=== PATIENT | male | born 1965 | race Caucasian/White ===

== ENCOUNTER 2018-12-23 23:04 | Emergency (ER) | payer MEDICAID ==
[~2018-12-23] VITALS: Ht 177.8 cm; Wt 68.0 kg
[~2018-12-23 23:04] MED LIST: LANS30EC PO; RANI150 PO
[2018-12-23] MEDS ORDERED: Prilosec10 M1 (23:16)
[2018-12-23] MEDS ORDERED: HYDHCL25 (23:17)
[2018-12-23 23:38] LABS: BASOPHILS ABSOLUTE AUTO 0.03 K/mm3 (0.00-0.23); BASOPHILS PERCENT AUTO 1 % (0-2); EOSINOPHILS PERCENT AUTO 0 % (0-6); Hematocrit 45.2 % (37.0-53.0); Hemoglobin 15.6 g/dL (13.5-17.5); IMMATURE GRAN ABSOLUTE AUTO 0.02 K/mm3 (0.00-0.10); IMMATURE GRAN PERCENT AUTO 0 % (0-1); LYMPHOCYTES PERCENT AUTO 23 % (21-46); MONOCYTES ABSOLUTE AUTO 0.55 K/mm3 (0.16-1.47); MONOCYTES PERCENT AUTO 8 % (4-13); Mean Corpuscular HGB 33.3 pg (26.0-34.0); Mean Corpuscular HGB Conc 34.5 g/dL (31.5-36.5); Mean Corpuscular Volume 97 fL (80-100); Mean Platelet Volume 9.7 fL (9.1-12.4); NEUTROPHILS ABSOLUTE AUTO 4.43 K/mm3 (1.96-9.15); NEUTROPHILS PERCENT AUTO 68 % (41-73); Platelet Count 234 K/mm3 (150-400); RDW Coefficient Variation 11.8 % (11.7-14.2); RDW Standard Deviation 42.4 fL (35.1-46.3); Red Blood Cell Count 4.68 M/mm3 (4.30-5.90); White Blood Cell Count 6.53 K/mm3 (4.00-11.30)
[2018-12-23 23:55] LABS: Alanine Aminotransfer (ALT/SGP 26 U/L (12-78); Albumin, Blood 3.8 g/dL (3.4-5.0); Albumin/Globulin Ratio 1.1 (0.8-1.8); Alk Phos 52 U/L (50-136); Anion Gap 7 mmol/L (6-16); Aspartate Aminotrans (AST/SGOT 13 U/L (12-37); Bilirubin, Total 0.7 mg/dL (0.1-1.0); Blood Urea Nitrogen 22 mg/dL (8-24); Bun/Creatinine Ratio 24.7 (12.0-20.0); CO2, Blood 30 mmol/L (21-32); Calcium, Blood 9.2 mg/dL (8.5-10.1); Chloride, Blood 98 mmol/L (98-108); Creatinine, Blood 0.89 mg/dL (0.60-1.20); Globulin, Blood 3.6 g/dL (2.2-4.0); Glomerular Filtration Rate >60 (60-); Glucose, Blood 109 mg/dL (70-99); Potassium, Blood 3.4 mmol/L (3.5-5.5); Sodium, Blood 135 mmol/L (136-145); Total Protein, Blood 7.4 g/dL (6.4-8.2)
[2018-12-24 00:11] LABS: Source, Urine Clean Catch
[2018-12-24 00:14] LABS: Bilirubin, Urine Neg (Neg); Blood, Urine 1+ (Neg); Glucose Qualitative, Urine Neg (Neg); Ketones, Urine 4+ (Neg); Leukocyte Esterase, Urine Neg (Neg); Nitrite, Urine Neg (Neg); Protein, Urine 1+ (Neg); Specific Gravity, Urine 1.015 (1.003-1.022); Urobilinogen, Urine 1+ (Normal); pH, Urine 6.5 (5.0-8.0)
[2018-12-24 00:19] LABS: Appearance, Urine Clear (Clear); Bacteria Rare /hpf; Color, Urine Yellow (P-Yellow); Mucus Light (0-Heavy); Red Blood Cells, Urine Rare /hpf (0-2); Squamous Epithelial Cells Not Seen /hpf (Few); White Blood Cells, Urine Not Seen /hpf (0-5)
[2018-12-24] MEDS ORDERED: Omeprazole20 M1 PO (02:08)
== END 2018-12-24 02:15 | disposition home or self-care (01) ==
LOC: ER 23:04
PROVIDERS: Physician Assistant
DX: K21.9 Gastro-esophageal reflux disease without esophagitis (principal); Z88.0 Allergy status to penicillin; Z88.5 Allergy status to narcotic agent; Z79.899 Other long term (current) drug therapy; F17.210 Nicotine dependence, cigarettes, uncomplicated
CPT/HCPCS: 36415; 74176; 80053; 81001; 83690; 85025; 96361; 96374; 99284-25; J2550; J7030

== ENCOUNTER 2018-12-26 09:52 | Emergency (ER) | payer MEDICAID ==
[~2018-12-26] VITALS: Ht 177.8 cm; Wt 68.0 kg
[~2018-12-26 09:52] MED LIST changes: +HYDHCL25; +Omeprazole20 M1 PO; +Prilosec10 M1
[2018-12-26 10:29] LABS: Alanine Aminotransfer (ALT/SGP 27 U/L (12-78); Albumin, Blood 4.1 g/dL (3.4-5.0); Albumin/Globulin Ratio 1.2 (0.8-1.8); Alk Phos 49 U/L (50-136); Anion Gap 8 mmol/L (6-16); Aspartate Aminotrans (AST/SGOT 16 U/L (12-37); Bilirubin, Total 0.5 mg/dL (0.1-1.0); Blood Urea Nitrogen 20 mg/dL (8-24); Bun/Creatinine Ratio 22.4 (12.0-20.0); CO2, Blood 29 mmol/L (21-32); Calcium, Blood 9.4 mg/dL (8.5-10.1); Chloride, Blood 100 mmol/L (98-108); Creatinine, Blood 0.89 mg/dL (0.60-1.20); Globulin, Blood 3.4 g/dL (2.2-4.0); Glomerular Filtration Rate >60 (60-); Glucose, Blood 124 mg/dL (70-99); Potassium, Blood 3.4 mmol/L (3.5-5.5); Sodium, Blood 137 mmol/L (136-145); Total Protein, Blood 7.5 g/dL (6.4-8.2)
[2018-12-26] MEDS ORDERED: Zofran4 MG PO (11:11)
== END 2018-12-26 12:32 | disposition home or self-care (01) ==
LOC: ER 09:52
PROVIDERS: Emergency Medicine
DX: G43.A0 Cyclical vomiting, in migraine, not intractable (principal); K21.9 Gastro-esophageal reflux disease without esophagitis; F17.200 Nicotine dependence, unspecified, uncomplicated; Z88.0 Allergy status to penicillin; Z88.5 Allergy status to narcotic agent; Z79.899 Other long term (current) drug therapy
CPT/HCPCS: 36415; 80053; 96361; 96374; 96375; 99284-25; J1200; J1630; J2405; J7030

== ENCOUNTER 2024-11-10 16:57 | Emergency (ER) | payer OTHER ==
[~2024-11-10] VITALS: Ht 177.8 cm; Wt 86.2 kg
[~2024-11-10 16:57] MED LIST changes: +Zofran4 MG PO
[2024-11-10 17:08] VITALS: BP 136/100
[2024-11-10] MEDS ORDERED: FentaNYL Citrate 50 MCG/ML 2 ML Injection IV ONE (17:40)
== END 2024-11-10 18:29 | disposition home or self-care (01) ==
LOC: ER 16:57
DX: S43.014A Anterior dislocation of right humerus, initial encounter (principal); S43.034A Inferior dislocation of right humerus, initial encounter; K21.9 Gastro-esophageal reflux disease without esophagitis; F17.200 Nicotine dependence, unspecified, uncomplicated; Z88.0 Allergy status to penicillin; Z88.5 Allergy status to narcotic agent; W01.0XXA Fall on same level from slipping, tripping and stumbling without subsequent striking against object, initial encounter
CPT/HCPCS: 23650; 73030; 96374; 99283-25; J3010

== ENCOUNTER 2025-04-18 06:02 | Day surgery (SDC) | payer OTHER ==
[2025-04-18] VITALS (11 sets, daily range): BP systolic 111–150; BP diastolic 72–95
[~2025-04-18] VITALS: Ht 177.8 cm; Wt 83.6 kg
[~2025-04-18 06:02] MED LIST changes: +CELE100 PO; +OMEP20ER PO
[2025-04-18] MEDS ORDERED: Benzocaine Oral Spray 0.5ML UD ONE (06:58)
--- NOTE | 2025-04-18 07:12 | NUR ---
Ambulatory in Day SurgeryPre-Op teaching done. Pt verbalizes understanding. History, Chart, Medications and Allergies reviewed before start of procedure.Patient confirms NPO status and agrees with scheduled surgery. Patient States Post-Procedure ride home has been arranged.
--- NOTE | 2025-04-18 07:36 | NUR ---
04/18/25 0736 Charisse Landis CONFIRMED AND REVIEWED H&P, MEDCICATIONS, ALLERGIES, MEDICAL HISTORY, RESPIRATORY HISTORY, VITAL SIGNS, 3-LEAD EKG, CONSENTS, AND PHYSICIAN ORDERS. PATIENT CONFIRMS NPO STATUS AND AGREES WITH SCHEDULED PROCEDURE. MONITOR INTACT WITH CONTINUOUS PULSE OXIMETRY, CAPNOGRAPHY, 3-LEAD EKG, INTERMITTENT BP. SUPPLEMENTAL O2 TO BE TITRATED THROUGHOUT PROCEDURE TO MAINTAIN O2 SATURATION ABOVE 90%. PATIENT DETERMINED TO BE ASA APPROPRIATE FOR PROPOFOL SEDATION PRIOR TO START OF PROCEDURE BY DR. BONILLA. MALLAMPATI CLASS 3 AIRWAY: VISUALIZATION OF ONLY THE BASE OF THE UVULA.
--- NOTE | 2025-04-18 08:08 | NUR ---
Discharge instructions reviewed with patient. Patient verbalizes understanding. Copy given to patient to take home. Patient States Post-Procedure ride home has been arranged. Discharged via wheelchair to private car for ride home.
== END 2025-04-18 08:10 | disposition home or self-care (01) ==
LOC: ORSCMMR 06:02 → ORD 07:30 → ORSCMMR 07:30
PROVIDERS: Internal Medicine Gastroenterology
PROC: 0DB48ZX Excision of Esophagogastric Junction, Via Natural or Artificial Opening Endoscopic, Diagnostic (ICD-10-PCS; principal; 2025-04-18 07:30)
DX: K22.70 Barrett's esophagus without dysplasia (principal); Z87.891 Personal history of nicotine dependence; K44.9 Diaphragmatic hernia without obstruction or gangrene; Z79.899 Other long term (current) drug therapy
CPT/HCPCS: 88305; A9270; J2704; J7120

== ENCOUNTER 2025-07-04 06:05 | Day surgery (SDC) | payer OTHER ==
[~2025-07-04] VITALS: Ht 177.8 cm; Wt 85.4 kg
[2025-07-04] MEDS ORDERED: Tranexamic Acid 100 ML IV ONE (06:28)
[2025-07-04] MEDS ORDERED: IBUP200 PO (06:34)
[2025-07-04] MEDS ORDERED: FentaNYL Citrate 50 MCG/ML 2 ML Injection ONE ×2 (06:49→09:06)
[2025-07-04] MEDS ORDERED: Metoclopramide HCl 5MG / ML 2ML Vial ONE ×2 (06:50→11:43)
[2025-07-04] MEDS ORDERED: Ondansetron HCl 2 MG / ML 2ML Vial ONE ×2 (06:50→11:03)
[2025-07-04] MEDS ORDERED: Rocuronium Bromide 10 MG/ML 5ML Injection IV ONE (06:50)
[2025-07-04] MEDS ORDERED: Bupivacaine HCl 0.25% 30 ML Injection ONE ×2 (06:52→09:12)
[2025-07-04] MEDS ORDERED: Midazolam HCl 1MG / ML 2ML Vial ONE (06:54)
[2025-07-04] MEDS ORDERED: CeFAZolin Sodium 2,000 MG VIAL ONE (07:02)
--- NOTE | 2025-07-04 07:23 | NUR ---
07/04/25 0723 Jessica Villagomez TIME OUT PERFORMED AT BEDSIDE WITH DR GRAY AT 0712. NERVE BLOCK STARTED AT 0716 NERVE BLOCK ENDED AT 0717 SPO2 AND HR MONITORED T/O PROCEDURE. PT TOLERATED PROCEDURE WELL.
[2025-07-04] MEDS ORDERED: Labetalol HCL 5 MG/ML 4ML Injection (Single Dose) ONE (08:41)
[2025-07-04] MEDS ORDERED: HydrALAZINE HCl 20 MG / ML 1ML Vial ONE (08:49)
[2025-07-04] MEDS ORDERED: Sugammadex Sodium 200 MG/2ML SDV (100 MG/ML) ONE (09:51)
[2025-07-04 10:22] VITALS: BP 130/88
--- NOTE | 2025-07-04 10:51 | NUR ---
07/04/25 [email or web address] José Miguel Hauser PT ARRIVED TO PACU WITH ORAL AIRWAY WHICH WAS CHANGES TO NASAL TRUMPET AFTER ARRIVAL 8 NASAL TRUMPET WAS PLACES BY ANETHESIA AND JAW THRUST WAS PERFORMED BY ANESTHESIA. AIRWAY SUCTIONED FOR SECRETIONS TIMES 2 AND PT O2 SATURATION RESPONDED WELL 66 TO MID 90'S. PT IS COUGHING AND DEEP BREATHING INDEPENDENTLY, PT DENIES PAIN AND NAUSEA, PT CURRENTLY AWAKE AND FOLLWING COMMANDS, TRANSERRING TO STEP DOWN STABLE
[2025-07-04 11:11] VITALS: BP 133/88
--- NOTE | 2025-07-04 12:23 | NUR ---
07/04/25 1223 José Miguel Hauser PARTNER AT BEDSIDE. PT IN RECLINER WITH RIGHT ARM ELEVATED ON PILLOW. POLAR PACK APPLIED AND IN PLACE. COLD RAGS PLACED ON PATIENT'S FOREHEAD AND BEHIND NECK TO HELP WITH NAUSEA. PT HAS PRODUCTIVE COUGH WITH CLEAR SPUTUM. SLING IN PLACE ON RIGHT ARM. PT REQUESTING PRESCRIPTION FOR NAUSEA, ORDER RECIEVED SCRIPT CALLED INTO [facility] BLOCK INTACT CAP REFILL LESS THAN 3 RADIAL PULSE PRESENT WARM PINK AND DRY
== END 2025-07-04 12:37 | disposition home or self-care (01) ==
LOC: ORSCSDS 06:05
PROVIDERS: Orthopaedic Surgery Sports Medicine
PROC: 0LM14ZZ Reattachment of Right Shoulder Tendon, Percutaneous Endoscopic Approach (ICD-10-PCS; principal; 2025-07-04 07:30)
PROC: 0RNJ4ZZ Release Right Shoulder Joint, Percutaneous Endoscopic Approach (ICD-10-PCS; principal; 2025-07-04 07:30)
DX: S42.254D Nondisplaced fracture of greater tuberosity of right humerus, subsequent encounter for fracture with routine healing (principal); M19.011 Primary osteoarthritis, right shoulder; M75.121 Complete rotator cuff tear or rupture of right shoulder, not specified as traumatic; K21.9 Gastro-esophageal reflux disease without esophagitis; Z79.899 Other long term (current) drug therapy
CPT/HCPCS: C1713; J0166; J0360; J0690; J2250; J2405; J2704; J2765; J3010; J7120; Q4125